=== PATIENT | male | born 1975 ===

== ENCOUNTER 2016-10-25 17:43 | Emergency (ER) | payer OTHER ==
[2016-10-25 17:43] VITALS: BMI 35.7
[2016-10-25 17:56] VITALS: BP 134/90
[2016-10-25 18:00] VITALS: O2SAT 99
[2016-10-25] MEDS ORDERED: Amoxicillin-Clav 875-125 mg Tab PO STA (18:26)
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
[2016-10-25 18:58] VITALS: PULSE 89; RESP 17; TEMP 97.9
== END 2016-10-25 18:58 | disposition home or self-care (01) ==
LOC: ED 17:43
DX: H66.92 Otitis media, unspecified, left ear (principal); Z87.891 Personal history of nicotine dependence

== ENCOUNTER 2018-03-13 08:58 | Emergency (ER) | payer BC, OTHER ==
[2018-03-13 09:26] VITALS: BMI 34.4
--- NOTE | 2018-03-13 09:42 | ED PDOC ---
Arrival/HPI - General Historian: Patient - History of Present Illness Narrative History of Present Illness (Text): 03/13/18 09:32 42 year old male, with past medical history of asthma and gastritis, presents to the Emergency department complaining of chest and left shoulder pain for past 2 weeks. Patient informs exacerbation of symptoms with movement of left arm but denies any immediate trauma or injury to the site. Patient denies taking any pain medication for the symptoms. Patient denies any other associated somatic complaints. Patient denies any fevers, chills, headache, dizziness, chest pain, shortness of breath, dyspnea on exertion, cough, abdominal pain, nausea, vom iting, diarrhea, back pain, neck pain, or any other complaints. Time/Duration: > week Symptom Onset: Gradual Symptom Course: Unchanged Activities at Onset: Light Context: Home Past Medical History - Provider Review Nursing Documentation Reviewed: Yes - Infectious Disease Hx of Infectious Diseases: None - Cardiac Hx Cardiac Disorders: No - Pulmonary Hx Asthma: Yes - Neurological Hx Neurological Disorder: Yes (dx 1 yr ago with narcolepsy) - HEENT Hx HEENT Disorder: No - Renal Hx Renal Disorder: No - Endocrine/Metabolic Hx Endocrine Disorders: No - Hematological/Oncological Hx Cancer: Yes (colon polyps removed 10or 12 yrs ago) - Integumentary Hx Dermatological Disorder: Yes (multiple tatoos) - Musculoskeletal/Rheumatological Hx Falls: No - Gastrointestinal Hx Diverticulitis: Yes Hx Gastroesophageal Reflux: Yes - Genitourinary/Gynecological Hx Genitourinary Disorders: No - Psychiatric Hx Psychophysiologic Disorder: No Hx Substance Use: No - Surgical History Other/Comment: left shoulder reconstructive sx job related injury about 13 yrs ago Family/Social History - Physician Review Nursing Documentation Reviewed: Yes Family/Social History: Unknown Family HX Smoking Status: Former Smoker Hx Alcohol Use: Yes Hx Substance Use: No Allergies/Home Meds Allergies/Adverse Reactions: Allergies No Known Allergies Allergy (Unverified 10/25/16 17:48) Home Medications: Home Meds Medication Instructions Recorded Confirmed Omeprazole Magnesium [Prilosec Otc] 40 mg PO DAILY 03/10/16 10/25/16 Review of Systems - Physician Review All systems were reviewed & negative as marked: Yes - Review of Systems Constitutional: absent: Fevers Respiratory: absent: SOB, Cough Cardiovascular: Chest Pain. absent: ESPINO Gastrointestinal: absent: Abdominal Pain, Diarrhea, Nausea, Vomiting Musculoskeletal: Other (left shoulder pain). absent: Back Pain, Neck Pain Neurological: absent: Headache, Dizziness Physical Exam Vital Signs Reviewed: Yes Vital Signs Temp Pulse Resp BP Pulse Ox 03/13/18 09:11 98.2 F 62 18 143/85 96 Temperature: Afebrile Blood Pressure: Normal Pulse: Regular Respiratory Rate: Normal Appearance: Positive for: Well-Appearing, Non-Toxic, Comfortable Pain Distress: None Mental Status: Positive for: Alert and Oriented X 3 - Systems Exam Head: Present: Atraumatic, Normocephalic Pupils: Present: PERRL Extroacular Muscles: Present: EOMI Conjunctiva: Present: Normal Mouth: Present: Moist Mucous Membranes Neck: Present: Normal Range of Motion Respiratory/Chest: Present: Clear to Auscultation, Good Air Exchange. No: Respiratory Distress, Accessory Muscle Use Cardiovascular: Present: Regular Rate and Rhythm, Normal S1, S2. No: Murmurs Abdomen: No: Tenderness, Distention, Peritoneal Signs Back: Present: Normal Inspection Upper Extremity: Present: Normal Inspection. No: Cyanosis, Edema Lower Extremity: Present: Normal Inspection. No: Edema Neurological: Present: GCS=15, CN II-XII Intact, Speech Normal Skin: Present: Warm, Dry, Normal Color. No: Rashes Psychiatric: Present: Alert, Oriented x 3, Normal Insight, Normal Concentration Medical Decision Making ED Course and Treatment: 03/13/18 09:26 Impression: 42 year old male presents to the Emergency department complaining of chest pain and left shoulder pain. Plan: -- EKG -- Labs -- Chest X-ray -- Toradol -- Urinalysis -- Reassess and disposition Prior Visits: Notes and results from previous visits were reviewed. Progress Notes: 03/13/18 09:26 EKG: Ordered, reviewed, and independently interpreted the EKG. Rate : 53 BPM Rhythm : Sinus bradycardia Interpretation : Left axis deviation - RAD Interpretation Narrative RAD Interpretations (Text): 03/13/18 11:47 Chest X-ray reviewed by radiologist, shows: FINDINGS: LUNGS: No active pulmonary disease. PLEURA: No significant pleural effusion identified, no pneumothorax apparent. CARDIOVASCULAR: No aortic atherosclerotic calcification present. Normal cardiac size. No pulmonary vascular congestion. OSSEOUS STRUCTURES: No significant abnormalities. VISUALIZED UPPER ABDOMEN: Normal. OTHER FINDINGS: None. IMPRESSION: No active disease. Radiology Orders: 03/13/18 09:27 CHEST PORTABLE [RAD] Stat Director Of Medical Staff Services: Radiologist - Medication Orders Current Medication Orders: Discontinued Medications Ketorolac Tromethamine (Toradol) 30 mg IVP STAT STA Stop: 03/13/18 09:28 - Scribe Statement The provider has reviewed the documentation as recorded by the Scribe Israel Mcdermott. All medical record entries made by the Scribe were at my direction and personally dictated by me. I have reviewed the chart and agree that the record accurately reflects my personal performance of the history, physical exam, medical decision making, and the department course for this patient. I have also personally directed, reviewed, and agree with the discharge instructions and disposition. Disposition/Present on Arrival - Present on Arrival Any Indicators Present on Arrival: No History of DVT/PE: No History of Uncontrolled Diabetes: No Urinary Catheter: No History Surgical Site Infection Following: None - Disposition Have Diagnosis and Disposition been Completed?: Yes Diagnosis: Musculoskeletal pain Disposition: HOME/ ROUTINE Disposition Time: 11:30 Condition: GOOD Discharge Instructions (ExitCare): Muscle and Bone Pain (DC) Additional Instructions: FELICIA VASQUEZ, thank you for letting us take care of you today. The emergency medical care you received today was directed at your acute symptoms. If you were prescribed any medication, please fill it and take as directed. It may take several days for your symptoms to resolve. Return to the Emergency Department if your symptoms worsen, do not improve, or if you have any other problems. Please contact your doctor or call one of the physicians/clinics you have been referred to that are listed on the Patient Visit Information form that is included in your discharge packet. Bring any paperwork you were given at discharge with you along with any medications you are taking to your follow up visit. Our treatment cannot replace ongoing medical care by a primary care provider outside of the emergency department. Thank you for allowing the [facility] team to be part of your care today. Follow up with our clinic for outpatient care and evaluation. Referrals: [facility] [Outside] - Follow up with primary Jody Leary MD [Medical Doctor] - Follow up with primary Forms: [employer] ([employer]), WORK NOTE
[2018-03-13 10:43] LABS: ALB/GLOB RATIO 1.3 (1.1-1.8); ALBUMIN 4.3 g/dL (3.0-4.8); ALT/SGPT 64 U/L (7-56); AST/SGOT 46 U/L (17-59); BLOOD UREA NITROGEN 12 mg/dL (7-21); CALCIUM 9.5 mg/dL (8.4-10.5); GFR NON-AFRICAN AMERICAN > 60
[2018-03-13 10:44] LABS: HEMOGLOBIN 15.2 g/dL (14.0-18.0); MEAN CELL VOLUME 92.8 fl (80.0-105.0); MEAN CORPUSCULAR HEMOGLOBIN 32.1 pg (25.0-35.0); MEAN CORPUSCULAR HGB CONC 34.5 g/dl (31.0-37.0); MEAN PLATELET VOLUME 10.6 fl (7.0-11.0); RBC 4.74 10^6/uL (3.5-6.1); WHITE BLOOD COUNT 9.6 10^3/uL (4.5-11.0)
--- NOTE | 2018-03-13 10:44 | RAD ---
Date of service: 03/13/2018 HISTORY: chest pain COMPARISON: 03/10/2016 FINDINGS: LUNGS: No active pulmonary disease. PLEURA: No significant pleural effusion identified, no pneumothorax apparent. CARDIOVASCULAR: No aortic atherosclerotic calcification present. Normal cardiac size. No pulmonary vascular congestion. OSSEOUS STRUCTURES: No significant abnormalities. VISUALIZED UPPER ABDOMEN: Normal. OTHER FINDINGS: None. IMPRESSION: No active disease.
[2018-03-13 11:25] LABS: BASO # 0.08 K/mm3 (0.0-2.0); BASO % 0.8 % (0.0-3.0); EOS # 0.7 (0.0-0.7); EOS % 7.5 % (1.5-5.0); GRAN # 5.11 (1.4-6.5); GRAN % 53.2 % (50.0-68.0); LYMPH # 3.1 (1.2-3.4); LYMPH % 32.2 % (22.0-35.0); MONO # 0.6 (0.1-0.6); MONO % 6.3 % (1.0-6.0)
[2018-03-13 11:35] LABS: TROPONIN I < 0.01 ng/mL
[2018-03-13 11:42] LABS: CK-MB 1.3 ng/mL (0.0-3.6)
[2018-03-13 11:59] VITALS: BP 133/69; PULSE 78; RESP 16; TEMP 98.7; O2SAT 99
--- NOTE | 2018-03-13 12:38 | CARD ---
APPROVED REPORT Date of service: 03/13/2018 EKG Measurement Heart [id number] <Conclusion> Poor data quality, interpretation may be adversely affected Sinus bradycardia with sinus arrhythmia Left axis deviation rSr Pattern V1-V2.
== END 2018-03-13 11:59 | disposition home or self-care (01) ==
LOC: ED 08:58
DX: M79.18 Myalgia, other site (principal); J45.909 Unspecified asthma, uncomplicated; K21.9 Gastro-esophageal reflux disease without esophagitis; Z87.891 Personal history of nicotine dependence
CPT/HCPCS: 71045; 80053; 82550; 82553; 83615; 83735; 84484; 85025; 85378; 93005; 96374; 99283; J1885